=== PATIENT | male | born 1965 | race Hispanic/Latino ===

== ENCOUNTER 2017-04-08 16:36 | Emergency (ER) | payer OTHER, SELFPAY ==
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
[2017-04-08] MEDS ORDERED: Ketorolac Tromethamine 60 MG/2 ML VIAL ONE (18:18)
== END 2017-04-08 18:43 | disposition home or self-care (01) ==
LOC: ERS 16:36
DX: S43.52XA Sprain of left acromioclavicular joint, initial encounter (principal); F17.210 Nicotine dependence, cigarettes, uncomplicated; X58.XXXA Exposure to other specified factors, initial encounter
CPT/HCPCS: 96372; 99406; J1885

== ENCOUNTER 2018-12-19 11:51 | Emergency (ER) | payer OTHER, SELFPAY ==
[2018-12-19] MEDS ORDERED: Famotidine 20 MG TAB ONE ×2 (12:47→12:52)
[2018-12-19] MEDS ORDERED: diphenhydrAMINE 25 MG CAP ONE (12:47)
[2018-12-19] MEDS ORDERED: Dexamethasone 4 mg/ml Vial ONE (12:47)
== END 2018-12-19 13:12 | disposition home or self-care (01) ==
LOC: ERS 11:51
DX: T63.461A Toxic effect of venom of wasps, accidental (unintentional), initial encounter (principal); F17.210 Nicotine dependence, cigarettes, uncomplicated
CPT/HCPCS: 99282; J1100; Q0163

== ENCOUNTER 2021-10-23 21:59 | Emergency (ER) | payer SELFPAY ==
[2021-10-24] MEDS ORDERED: Ketorolac Tromethamine 30 MG/ML VIAL ONE (00:14)
== END 2021-10-24 00:30 | disposition home or self-care (01) ==
LOC: ERS 21:59
DX: S89.91XA Unspecified injury of right lower leg, initial encounter (principal); X50.1XXA Overexertion from prolonged static or awkward postures, initial encounter; F17.210 Nicotine dependence, cigarettes, uncomplicated
CPT/HCPCS: 96372; J1885

== ENCOUNTER 2022-09-06 17:18 | Emergency (ER) | payer SELFPAY | END 2022-09-06 19:39 | disposition home or self-care (01) | LOC: ERS 17:18 | DX: S80.12XA Contusion of left lower leg, initial encounter (principal); F17.210 Nicotine dependence, cigarettes, uncomplicated | CPT/HCPCS: 99283 ==

== ENCOUNTER 2022-10-06 22:56 | Emergency (ER) | payer SELFPAY ==
[~2022-10-06 22:56] MED LIST: Iopamidol-370 76% 500 ML MDV (1 ML CHARGE) ONE
[2022-10-06] MEDS ORDERED: Acetaminophen 500 MG TAB ONE (23:40)
[2022-10-06] MEDS ORDERED: Ketorolac Tromethamine 30 MG/ML VIAL ONE (23:40)
[2022-10-07] MEDS ORDERED: fentaNYL 50 mcg/mL 1 mL Vial ONE (00:08)
[2022-10-07 00:31] LABS: #Basophils 0.1 thou/uL (0.0-0.2); #Eosinphils 0.3 thou/uL (0.0-0.7); #Monocytes 0.8 thou/uL (0.11-0.59); #Neutrophils 12.8 thou/uL (1.40-6.50); %Basophils 0.4 % (0.0-1.0); %Eosinophils 2.2 % (0.0-10.0); %Lymphocytes 10.4 % (21.0-51.0); %Monocytes 4.8 % (0.0-10.0); %Neutrophils 81.4 % (42.0-75.0); Mean Corpuscular HGB CONC 34.8 g/dL (32.0-36.0); Mean Corpuscular Volume 94.8 fl (78.0-98.0); Mean Platelet Volume 10.2 fL (7.4-10.4); Platelet Count 336 10x3/uL (130-400); RBC Distribution Width 12.2 % (11.5-14.5); Red Blood Cell (RBC) Count 4.24 mill/uL (4.70-6.10); White Blood Cell (WBC) Count 15.8 10x3/uL (4.8-10.8)
[2022-10-07 00:56] LABS: ALT (SGPT) 23 U/L (8-55); AST (SGOT) 37 U/L (5-34); Albumin 4.8 g/dL (3.5-5.0); Alkaline Phosphatase 90 U/L (40-110); Anion Gap 18 mmol/L (10-20); BUN (Urea Nitrogen) 19 mg/dL (8.4-25.7); Bilirubin, Total 0.5 mg/dL (0.2-1.2); Calc. Creatinine Clearance 0 mL/min (70-130); Calcium 9.2 mg/dL (7.8-10.44); Carbon Dioxide 19 mmol/L (22-29); Chloride 101 mmol/L (98-107); Estimated GFR 99; Globulin 3.5 g/dL (2.4-3.5); Glucose 105 mg/dL (70-105); Potassium 4.2 mmol/L (3.5-5.1); Protein, Total 8.3 g/dL (6.0-8.3); Sodium 134 mmol/L (136-145)
[2022-10-07 01:43] LABS: Lipase 165 U/L (8-78)
== END 2022-10-07 01:40 | disposition home or self-care (01) ==
LOC: ERS 22:56
DX: S22.41XA Multiple fractures of ribs, right side, initial encounter for closed fracture (principal); S00.83XA Contusion of other part of head, initial encounter; D72.829 Elevated white blood cell count, unspecified; F17.210 Nicotine dependence, cigarettes, uncomplicated; Y04.8XXA Assault by other bodily force, initial encounter
CPT/HCPCS: 36415; 70450; 70486; 71260; 74177; 80053; 83690; 85025; 86850; 86900; 86901; 96372; 96374; J1885; J3010; Q9967

== ENCOUNTER 2024-11-02 18:34 | Inpatient (IN) | payer OTHER ==
[2024-11-02] MEDS ORDERED: Ketorolac Tromethamine 30 MG (1 mL) VIAL ONE (19:19)
[2024-11-02] MEDS ORDERED: Famotidine 20 MG TAB ONE (19:19)
[2024-11-02 22:25] LABS: #Basophils 0.04 10x3/uL (0.0-0.2); #Eosinophils 0.07 10x3/uL (0.0-0.7); #Monocytes 0.08 10x3/uL (0.11-0.59); #Neutrophils 9.25 10x3/uL (1.40-6.50); %Basophils 0.4 % (0.0-1.0); %Eosinophils 0.7 % (0.0-10.0); %Lymphocytes 4.4 % (21.0-51.0); %Monocytes 0.8 % (0.0-10.0); %Neutrophils 93.4 % (42.0-75.0); Hematocrit 38.2 % (42.0-52.0); Hemoglobin 13.2 g/dL (14.0-18.0); Mean Corpuscular Hemoglobin 32.1 pg (27.0-31.0); Mean Corpuscular Volume 92.9 fL (78.0-98.0); Platelet Count 327 10x3/uL (130-400); Red Blood Cell (RBC) Count 4.11 mill/uL (4.70-6.10); White Blood Cell (WBC) Count 9.91 10x3/uL (4.8-10.8)
[2024-11-02 22:39] LABS: INR-International Normal Ratio 0.9; PTT 30.5 sec (22.9-36.1); Prothrombin Time 12.1 sec (12.0-14.7)
[2024-11-02 22:55] LABS: ALT (SGPT) 16 U/L (Less than 45); AST (SGOT) 27 U/L (11-34); Albumin 4.4 g/dL (3.1-4.5); Alkaline Phosphatase 106 U/L (40-110); Anion Gap 17 mmol/L (10-20); BUN (Urea Nitrogen) 12 mg/dL (8.4-25.7); Bilirubin, Total 0.5 mg/dL (0.3-1.2); Calc. Creatinine Clearance 0 mL/min (70-130); Calcium 8.9 mg/dL (7.8-10.44); Carbon Dioxide 21 mmol/L (23-31); Chloride 102 mmol/L (98-107); Globulin 3.9 g/dL (2.4-3.5); Glucose 131 mg/dL (80-115); Potassium 4.1 mmol/L (3.5-5.1); Sodium 136 mmol/L (136-145)
[2024-11-03 00:20] VITALS: BMI 21.8
[2024-11-03] MEDS ORDERED: Ondansetron PF 4 MG/2 ML Vial IVP PRN (01:30)
[2024-11-03 05:14] LABS: #Basophils Less than 0.03 10x3/uL (0.0-0.2); #Eosinophils Less than 0.03 10x3/uL (0.0-0.7); #Monocytes 0.04 10x3/uL (0.11-0.59); #Neutrophils 4.88 10x3/uL (1.40-6.50); %Basophils 0.0 % (0.0-1.0); %Eosinophils 0.0 % (0.0-10.0); %Lymphocytes 5.5 % (21.0-51.0); %Monocytes 0.8 % (0.0-10.0); %Neutrophils 93.3 % (42.0-75.0); Hematocrit 37.0 % (42.0-52.0); Hemoglobin 13.0 g/dL (14.0-18.0); Mean Corpuscular Hemoglobin 32.4 pg (27.0-31.0); Mean Corpuscular Volume 92.3 fL (78.0-98.0); Platelet Count 311 10x3/uL (130-400); Red Blood Cell (RBC) Count 4.01 mill/uL (4.70-6.10); White Blood Cell (WBC) Count 5.23 10x3/uL (4.8-10.8)
[2024-11-03 05:32] LABS: Anion Gap 12 mmol/L (10-20); BUN (Urea Nitrogen) 14 mg/dL (8.4-25.7); Calc. Creatinine Clearance 107 mL/min (70-130); Calcium 8.7 mg/dL (7.8-10.44); Carbon Dioxide 23 mmol/L (23-31); Chloride 104 mmol/L (98-107); Glucose 146 mg/dL (80-115); Potassium 4.2 mmol/L (3.5-5.1); Sodium 135 mmol/L (136-145)
[2024-11-04 12:27] VITALS: BMI 21.8
[2024-11-06] MEDS: PNEUMOC 20-VAL CONJ-DIP CRM/PF 0.5 ML SYRINGE IM ONE (07:30)
[2024-11-06] MEDS ORDERED: Thrombin 5000 UNITS/5 ML VIAL ONE (11:13)
[2024-11-06] MEDS ORDERED: Bacitracin Zinc Ointment 30 gm TUBE ONE (11:13)
[2024-11-06] MEDS ORDERED: PROPOFOL 0 ML ONE (11:15)
[2024-11-06] MEDS ORDERED: fentaNYL PF 100 MCG/2 ML SYRINGE ONE ×3 (11:15→23:30)
[2024-11-06] MEDS ORDERED: Rocuronium Bromide 10 MG/ML (10ML VIAL) ONE ×2 (11:16→16:17)
[2024-11-06] MEDS ORDERED: Lidocaine 1% PF 5 ML VIAL ONE (11:16)
[2024-11-06] MEDS ORDERED: CEFAZOLIN 2 GM VIAL ONE (11:53)
[2024-11-06] MEDS ORDERED: Lidocaine 4% Topical Sol 50 ML BOT ONE (13:14)
[2024-11-06] MEDS ORDERED: PROPOFOL 20 ML ONE (13:18)
[2024-11-06] MEDS ORDERED: PHENYLEPHRINE-NS 100 MCG/ML 10 ML SYRINGE ONE (13:36)
[2024-11-06] MEDS ORDERED: CEFAZOLIN 1 GM VIAL ONE (18:04)
[2024-11-06] MEDS ORDERED: Ondansetron PF 4 MG/2 ML Vial ONE (21:20)
[2024-11-06] MEDS ORDERED: SUGAMMADEX SODIUM 200 MG/2 ML VIAL ONE (21:20)
[2024-11-06] MEDS ORDERED: HYDROmorphone 0.5 MG/0.5 ML SYRINGE ONE ×2 (22:01→22:39)
[2024-11-07] MEDS ORDERED: HYDROcodone/Acetaminophen 5/325 mg Tablet PO PRN (04:27)
[2024-11-07] MEDS: HYDROcodone/Acetaminophen 5/325 mg Tablet PO PRN (06:22)
[2024-11-07] MEDS: Cyclobenzaprine 10 MG TAB PO PRN (09:17)
[2024-11-12] MEDS ORDERED: Senokot 8.6 MG TAB PO PRN (11:27)
[2024-11-13 15:53] VITALS: BP 121/81; TEMP 97.4
== END 2024-11-13 16:00 | DRG 518 ==
LOC: ERS 18:34 → T4-B 22:56 → OBSVTOIN 11-03 10:56 → SURG B 11-07 01:00
PROVIDERS: ADMIT Internal Medicine; ATTEND Emergency Medicine
PROC: 00NW0ZZ Release Cervical Spinal Cord, Open Approach (ICD-10-PCS; principal; 2024-11-06)
PROC: 0PH304Z Insertion of Internal Fixation Device into Cervical Vertebra, Open Approach (ICD-10-PCS; principal; 2024-11-06)
PROC: 00NX0ZZ Release Thoracic Spinal Cord, Open Approach (ICD-10-PCS; principal; 2024-11-06)
DX: M48.03 Spinal stenosis, cervicothoracic region (principal); S14.123A Central cord syndrome at C3 level of cervical spinal cord, initial encounter; G95.89 Other specified diseases of spinal cord; R26.0 Ataxic gait; Z72.0 Tobacco use; Z91.030 Bee allergy status; Z91.048 Other nonmedicinal substance allergy status; Z79.899 Other long term (current) drug therapy; Z98.890 Other specified postprocedural states; Z86.19 Personal history of other infectious and parasitic diseases
CPT/HCPCS: 36415; 36416; 71045; 72040; 72072; 72100; 80048; 80053; 85025; 85610; 85730; 86850; 86900; 86901; 93005; 96374; 96375; A4314; C1713; C1889; G0378; J0169; J0665; J0690; J1100; J1171; J1885; J2270; J2405; J2704; J2919; J3010; J3373; J7030; P9045